=== PATIENT | female | born 1945 | race Caucasian/White ===

== ENCOUNTER 2016-04-24 09:00 | Inpatient (IN) | payer MEDICARE, OTHER ==
[~2016-04-24] VITALS: Ht 160 cm; Wt 91.0 kg
[2016-04-24 21:05] LABS: BILIRUBIN NEGATIVE (NEGATIVE); BLOOD NEGATIVE Ery/uL (NEGATIVE); CLARITY CLEAR (CLEAR); COLOR STRAW (YELLOW); GLUCOSE (U) NORMAL (NORMAL); KETONE (U) NEGATIVE (NEGATIVE); LEUKOCYTES NEGATIVE Leu/uL (NEGATIVE); NITRITE NEGATIVE (NEGATIVE); PROTEIN NEGATIVE (NEGATIVE); SPECIFIC GRAVITY <=1.005 (1.001-1.030); UROBILINOGEN 0.2 mg/dL (0.2-1.0)
[2016-04-24 21:12] LABS: BACTERIA TRACE; SQUAMOUS EPITHELIAL CELLS RARE; URINARY RBC RARE; URINARY WBC RARE
[2016-04-25 05:11] LABS: HCT 30.9 % (37.0-47.0); HGB 10.3 g/dl (12.5-16.0); MCH 29.9 pg (25.0-31.0); MCHC 33.3 g/dL (32.0-36.0); MCV 89.8 fL (78.0-100.0); MPV 9.4 fL (6.0-9.5); RBC 3.44 M/uL (4.20-5.40); WBC 9.7 K/uL (4.0-10.5)
[2016-04-25 05:34] LABS: POTASSIUM 5.2 mmol/L (3.5-5.1)
[2016-04-26 05:01] LABS: HCT 30.8 % (37.0-47.0); HGB 10.1 g/dl (12.5-16.0); MCH 29.8 pg (25.0-31.0); MCHC 32.8 g/dL (32.0-36.0); MCV 90.9 fL (78.0-100.0); MPV 9.4 fL (6.0-9.5); RBC 3.39 M/uL (4.20-5.40); RDW 14.3 % (11.5-14.0); WBC 9.1 K/uL (4.0-10.5)
[2016-04-26 05:11] LABS: CREATININE 1.1 mg/dL (0.5-1.0); POTASSIUM 4.2 mmol/L (3.5-5.1)
[2016-04-27 05:19] LABS: HCT 31.6 % (37.0-47.0); HGB 10.2 g/dl (12.5-16.0); MCH 29.6 pg (25.0-31.0); MCHC 32.3 g/dL (32.0-36.0); MCV 91.6 fL (78.0-100.0); MPV 9.4 fL (6.0-9.5); RBC 3.45 M/uL (4.20-5.40); RDW 14.6 % (11.5-14.0); WBC 6.6 K/uL (4.0-10.5)
== END 2016-04-28 13:00 | DRG 483 ==
LOC: FMS 09:00
PROVIDERS: ADMIT Orthopaedic Surgery
PROC: 0RRK00Z Replacement of Left Shoulder Joint with Reverse Ball and Socket Synthetic Substitute, Open Approach (ICD-10-PCS; principal; 2016-04-24 07:00)
DX: M19.012 Primary osteoarthritis, left shoulder (principal); D64.9 Anemia, unspecified; N39.0 Urinary tract infection, site not specified; I10 Essential (primary) hypertension; F32.9 Major depressive disorder, single episode, unspecified; F41.9 Anxiety disorder, unspecified; K21.9 Gastro-esophageal reflux disease without esophagitis; E78.5 Hyperlipidemia, unspecified; M06.9 Rheumatoid arthritis, unspecified; M26.602 Left temporomandibular joint disorder, unspecified; B96.89 Other specified bacterial agents as the cause of diseases classified elsewhere
CPT/HCPCS: 36415; 73020; 80048; 81001; 86850; 86900; 86901; 88311; 93005; 94010; 94762; 97110; 97116; 97163; 97166; 97530; 97530-GP; 97535; C1776; J0131; J1100; J1170; J1885; J2405; J2704; J2710; J2795; J3010

== ENCOUNTER 2016-04-28 13:18 | Inpatient (IN) | payer MEDICARE, OTHER ==
[2016-04-29 06:39] LABS: CREATININE 1.3 mg/dL (0.5-1.0); POTASSIUM 5.4 mmol/L (3.5-5.1)
[2016-05-04 14:59] LABS: POTASSIUM 3.9 mmol/L (3.5-5.1)
--- NOTE | 2016-05-04 17:43 | NUR ---
70 YEAR OLD FEMAL DC [facility] S/P LEFT SHOULDER REPAIR A/O X3, WENT OVER DC ORDERS, R/V UNDERDSTANDING
[2016-05-04] MEDS ORDERED: RHEUMATREX2.5 MG PO (18:01)
[2016-05-04] MEDS ORDERED: PLAQUENIL200 M1 PO (18:02)
[2016-05-04] MEDS ORDERED: OMEPRAZOLE20 MG PO (18:02)
[2016-05-04] MEDS ORDERED: FOLIC ACID1 MG PO (18:02)
[2016-05-04] MEDS ORDERED: ASPIR 8181 MG PO (18:02)
[2016-05-04] MEDS ORDERED: COZAAR50 MG PO (18:03)
[2016-05-04] MEDS ORDERED: MILLIPRED5 MG PO (18:03)
[2016-05-04] MEDS ORDERED: NORVASC5 MG PO (18:03)
[2016-05-04] MEDS ORDERED: PROZAC20 MG PO (18:03)
[2016-05-04] MEDS ORDERED: ALL DAY ALLERGY10 M3 PO (18:04)
[2016-05-04] MEDS ORDERED: PERCOCET 5/3251 TAB PO (18:04)
[2016-05-04] MEDS ORDERED: FEOSOL325 MG PO (18:06)
[2016-05-04] MEDS ORDERED: LASIX20 MG PO (18:06)
--- NOTE | 2016-05-05 10:11 | NUR ---
PT. D/C HOME WITH DAUGHTER, KENY YBARRA. PT. REQUESTED [employer] FOR PT/OT AND NURSING ASSESSMENT. PT. DOES NOT NEED ANY DME. AND SHE IS ON ASPIRIN FOR BLOOD THINNNER. D/C NOTICE AND QUESTIONNAIRE GIVEN.
== END 2016-05-04 17:45 | disposition home health service (06) | DRG 560 ==
LOC: FSNU 13:18
PROVIDERS: Internal Medicine; ADMIT Orthopaedic Surgery
DX: Z47.1 Aftercare following joint replacement surgery (principal); N17.9 Acute kidney failure, unspecified; E87.5 Hyperkalemia; M06.9 Rheumatoid arthritis, unspecified; E86.0 Dehydration; Z96.612 Presence of left artificial shoulder joint; I10 Essential (primary) hypertension; E78.5 Hyperlipidemia, unspecified; Z87.440 Personal history of urinary (tract) infections
CPT/HCPCS: 36415; 80048; 97110; 97116; 97162; 97166; 97530-GP; 97535; 97537; J1885